=== PATIENT | male | born 1960 | race Caucasian/White ===

== ENCOUNTER 2022-07-29 13:23 | Inpatient (IN) | payer MEDICARE, MEDICAID ==
[~2022-07-29] VITALS: Ht 188 cm; Wt 91.2 kg
--- NOTE | 2022-07-29 13:23 | NUR ---
RECIVED PT C[facility] AND HR HAD WOUND WITH YELLOW DRNING ON RT LER
[2022-07-29] MEDS ORDERED: IV NS 0.9% 1,000 ML IV ONE ×2 (14:00→14:30)
[2022-07-29 14:21] LABS: BASOPHILS % (AUTO) 0.2 % (0.0-2.0); EOSINOPHILS % (AUTO) 0.1 % (0.0-6.0); HEMATOCRIT 36 % (39-51); HEMOGLOBIN 11.1 g/dL (13.5-17.5); LYMPHOCYTES # (AUTO) 0.4 K/uL (0.8-4.8); LYMPHOCYTES % (AUTO) 3.3 % (20.0-44.0); MEAN CORPUSCULAR HGB CONC 31 g/dl (31.0-36.0); MEAN CORPUSCULAR VOLUME 81 fL (80-96); MONOCYTES # (AUTO) 0.7 K/uL (0.1-1.30); MONOCYTES % (AUTO) 6.4 % (2.0-12.0); NEUTROPHILS # (AUTO) 9.8 K/uL (1.8-8.9); PLATELET COUNT (AUTO) 445 K/uL (150-450); RED BLOOD CELL COUNT(AUTO) 4.38 MIL/uL (4.5-6.0); WHITE BLOOD COUNT (AUTO) 10.9 K/uL (4.3-11.0)
--- NOTE | 2022-07-29 14:24 | NUR ---
MOVE SHEET SUBMITTED.
[2022-07-29] MEDS ORDERED: KETOROLAC TROMETHAMINE INJ 30 MG/ML VIAL IV ONE (14:30)
[2022-07-29] MEDS ORDERED: VANCOMYCIN 1 GM in IV D5W 250 ML IV ONE (14:30)
[2022-07-29 14:36] LABS: CALCIUM, SERUM 8.3 mg/dL (8.5-10.1); CARBON DIOXIDE 25 mmol/L (21-32); CHLORIDE 99 mmol/L (98-107); CREATININE 1.3 mg/dL (0.6-1.3); GLUCOSE 179 mg/dL (74-106); SODIUM SERUM 130 mmol/L (136-145); UREA NITROGEN, BLOOD 18 mg/dL (7-18)
--- NOTE | 2022-07-29 14:40 | NUR ---
[facility] CALLED PAINTER AIRCRAFT PAGED.
[2022-07-29] MEDS ORDERED: METF-881 PO (14:41)
[2022-07-29] MEDS ORDERED: HYDR25TA4 PO (14:41)
[2022-07-29] MEDS ORDERED: TERB250T52 PO (14:41)
[2022-07-29] MEDS ORDERED: CLOP75TA15 PO (14:41)
[2022-07-29] MEDS ORDERED: ASPI-1420 PO (14:41)
[2022-07-29] MEDS ORDERED: ATOR40TA PO (14:41)
[2022-07-29 14:42] LABS: ALANINE AMINOTRANSFERASE 53 U/L (12-78); ALKALINE PHOSPHATASE 82 U/L (46-116); ASPARTATE AMINOTRANSFERASE 38 U/L (15-37); BILIRUBIN,DIRECT 0.1 mg/dL (0.0-0.2); BILIRUBIN,TOTAL 0.3 mg/dL (0.2-1.0); TOTAL PROTEIN, SERUM 7.6 g/dL (6.4-8.2)
--- NOTE | 2022-07-29 15:00 | NUR ---
UA SENT TO LAB
--- NOTE | 2022-07-29 15:45 | NUR ---
DR. BRICEÑO WOUND HERE AT BED SIDE WOUND CULURE DONE AND SENT TO LAB IN BOTH LOWER EXTRAMITY
--- NOTE | 2022-07-29 16:08 | NUR ---
COVID SWAB SENT TO LAB
--- NOTE | 2022-07-29 17:00 | NUR ---
DRESSING APPLEED IN BOTH LOWER EXTRAMITY
[2022-07-29] MEDS ORDERED: LORAZEPAM INJ 2 MG/ML VIAL IV ONE (17:30)
[2022-07-29] MEDS ORDERED: ACETAMINOPHEN ES 500 MG TABLET PO ONE (17:30)
[2022-07-29] MEDS ORDERED: ACETAMINOPHEN ES 500 MG TABLET ONE (17:43)
[2022-07-29] MEDS ORDERED: LORAZEPAM INJ 2 MG/ML VIAL ONE (17:43)
--- NOTE | 2022-07-29 18:00 | NUR ---
TEMP 100.5 TYLENOL 1 GM PO GIVEN
--- NOTE | 2022-07-29 19:45 | NUR ---
HAND OFF LARISA LEZAMA
[2022-07-29] MEDS ORDERED: MAGNESIUM HYDROXIDE 30 ML UDC PO PRN (20:30)
[2022-07-29] MEDS ORDERED: DEXTROSE 50%-WATER 50 ML DISP.SYRIN IV PRN (20:30)
[2022-07-29] MEDS ORDERED: ONDANSETRON HCL/PF 4 MG/2 ML VIAL IVP PRN (20:30)
[2022-07-29] MEDS ORDERED: Z GUARD REMEDY 4 OZ OINT TP PRN (20:30)
[2022-07-29] MEDS ORDERED: MAG HYDROX/AL HYDROX/SIMETH 30 ML UDC PO PRN (20:30)
--- NOTE | 2022-07-29 20:36 | NUR ---
REPORT GIVEN TO January RN FOR GLENN
[2022-07-29 21:20] VITALS: BP 115/60
--- NOTE | 2022-07-29 21:28 | NUR ---
PT TRANSFERRED TO 3W-2 VIA ACLS PROTOCOL. ALL BELONGINGS WITH PT
[2022-07-29 21:40] VITALS: BP 115/60
--- NOTE | 2022-07-29 21:40 | NUR ---
EIGHT SECTION BLOWERBABY STROLLER RENTAL CLERK NOTES RECEIVED PATIENT FROM ED [facility]IA [facility] AT 2120 UNDER THE CARE OF STANFORD RAMOS NP WITH ADMITTING DX OF BILATERAL LOWER EXTREMITY CELLULITIS AND POSSIBLE EARLY SEPSIS. PATIENT IS A/O X3, ANXIOUS. BREATHING EVEN AND NON-LABORED, ON O2 AT 2LPM VIA NASAL CANULA. PRODUCTIVE COUGH NOTED. C/O BILATERAL LOWER EXTREMITY PAIN 10/10. PATIENT ALSO VERBALIZED HE HAS NON-RADIATING CHEST PAIN WHEN COUGHING. HAS LEFT FOREARM IV ACCESS #20G AND SALINE LOCKED. NO S/S OF INFILTRATION NOTED. V/S TAKEN. PHYSICAL ASSESSMENT DONE. WOUND CARE RENDERED. ALL BELONGINGS ACCOUNTED FOR. ORIENTED PATIENT TO UNIT AND STAFF. SAFETY PRECAUTIONS IN PLACE: BED LOCKED AND IN LOWEST POSITION, SIDE RAILS UP X2, CALL LIGHT WITHIN REACH. WILL CONTINUE POC.
[2022-07-29] MEDS ORDERED: TEMAZEPAM 15 MG CAPSULE PO PRN (22:00)
--- NOTE | 2022-07-29 22:00 | NUR ---
TELEVISION WRITER NOTES PATIENT'S MEDICATIONS PLACED IN BAG AND INVENTORIED. WILL SURRENDER TO PHARMACY IN THE MORNING.
[2022-07-29] MEDS: ATORVASTATIN 40 MG TABLET PO SCH (22:03)
[2022-07-29] MEDS: IV NS 0.9% 1,000 ML IV PRN (22:03)
[2022-07-29] MEDS: MORPHINE SULFATE INJ 2 MG/ML DISP.SYRIN IV PRN (22:07)
--- NOTE | 2022-07-29 22:10 | NUR ---
CONTEMPORARY OR MODERN DANCER NOTES PATIENT C/O BLE PAIN. HE IS VERY ANXIOUS. ADMINISTERED PRN MORPHINE 2MG, TOLERATED WELL.
[2022-07-29] MEDS: INSULIN REGULAR, HUMAN 100 UNIT/ML 3 ML VIAL SQ PRN (22:20)
[2022-07-29] MEDS: BLOOD SUGAR DIAGNOSTIC 1 EACH STRIP IN SCH (22:20)
[2022-07-29] MEDS: ACETAMINOPHEN 325 MG TABLET PO PRN (23:59)
[2022-07-30] VITALS (9 sets, daily range): BP systolic 116–136; BP diastolic 64–80
--- NOTE | 2022-07-30 01:25 | NUR ---
WOODS SUPERINTENDENT NOTES PATIENT STILL NOTED WITH FEVER. ICE PACK PROVIDED.
[2022-07-30] MEDS: VANCOMYCIN HCL 0.75 GM in IV D5W 250 ML IV SCH ×2 (02:32→15:21)
[2022-07-30] MEDS: MORPHINE SULFATE INJ 2 MG/ML DISP.SYRIN IV PRN ×4 (03:20→21:50)
--- NOTE | 2022-07-30 03:20 | NUR ---
RESOURCE MANAGER NOTES PATIENT WOKE UP AND C/O BLE PAIN 03/25. ADMINISTERED PRN MORPHINE 2MG, WILL CONTINUE PAIN MGT.
[2022-07-30] MEDS: ALBUTEROL FS 2.5 MG/3 ML VIAL.NEB NEB PRN ×3 (03:32→20:43)
[2022-07-30] MEDS: IPRATROPIUM NEB FS 0.5 MG/2.5 ML AMPUL.NEB NEB PRN ×3 (03:32→20:43)
--- NOTE | 2022-07-30 04:00 | NUR ---
OCCUPATIONAL SAFETY AND HEALTH MANAGER NOTES NOTIFIED HOSPITALIST DMITRIY HAMILTON THAT PATIENT IS C/O DIFFICULTY EXCRETING SECRETIONS. RT RECOMMENDED MUCOMYST. STILL AWAITING FOR ORDER. Addendum: 07/30/22 at 0710 by January ROLDAN LEZAMA NO ANSWER FROM RT FOR MUCOMYST RECOMMENDATION. ENDORSING TO AM NURSE FOR CLARIFICATION.
[2022-07-30] MEDS: INSULIN REGULAR, HUMAN 100 UNIT/ML 3 ML VIAL SQ PRN ×4 (06:41→22:06)
[2022-07-30] MEDS: BLOOD SUGAR DIAGNOSTIC 1 EACH STRIP IN SCH ×4 (06:41→22:05)
--- NOTE | 2022-07-30 07:11 | NUR ---
PROFESSOR OF BIOLOGY CLOSING NOTES PATIENT IN BED ASLEEP, EASY TO AROUSE. ABLE TO VERBALIZE NEEDS. STABLE THROUGHOUT THE NIGHT. SATURATING AROUND 96-98% ON O2 AT 2LPM VIA NASAL CANULA. FEBRILE. OBTAINED MUCOMYST ORDER FROM HOSPITALIST, AWAITING FOR CLARIFICATION FROM RT. ON TELE MONITOR READING SINUS TACHYCARDIA AT 114 BPM. LEFT FOREARM IV ACCESS #20G INTACT, PATENT AND FLUSHING. ALL DUE MEDS GIVEN AND NEEDS ATTENDED. SAFETY PRECAUTIONS MAINTAINED. WILL ENDORSE TO NEXT SHIFT FOR GLENN.
[2022-07-30 07:18] LABS: CALCIUM, SERUM 8.1 mg/dL (8.5-10.1); CREATININE 1.2 mg/dL (0.6-1.3); PHOSPHORUS 2.3 mg/dL (2.5-4.9)
--- NOTE | 2022-07-30 07:23 | NUR ---
INTERACTIVE GRAPHIC DESIGNER OPENING NOTES RECEIVED PATIENT ASLEEP IN BED, EASILY AWAKENS. PT IS A/O X 3, ABLE TO MAKE NEEDS KNOWN, NO C/O PAIN OR ANY DISCOMFORTS VOICED AT THIS TIME. ON SUPPLEMENTAL 02 @ 2LPM, TOLERATING WELL, BREATHING EVEN AND UNLABORED, NO ACUTE DISTRESS NOTED. ON TELE-MONITOR WITH CURRENT READING OF ST, HR 120, NO C/O CARDIAC DISTRESS VOICED AT THIS TIME. IV ACCESS ON LFA G@ 20 INTACT WITH IVF OF NS @ 75 ML/HR INFUSING WELL, NO S/S OF INFILTRATION NOTED. SAFETY PRECAUTIONS IN PLACE: BED IN LOWEST LOCKED POSITION WITH SR UP X2, CALL LIGHT W/IN REACH. WILL CONTINUE TO MONITOR PT ACCORDINGLY.
[2022-07-30 07:24] LABS: THYROID STIMULATING HORMONE 0.497 uIU/mL (0.358-3.74)
[2022-07-30 07:38] LABS: BASOPHILS % (AUTO) 0.1 % (0.0-2.0); HEMATOCRIT 32 % (39-51); HEMOGLOBIN 10.1 g/dL (13.5-17.5); LYMPHOCYTES % (AUTO) 7.8 % (20.0-44.0); MEAN CORPUSCULAR HGB CONC 32 g/dl (31.0-36.0); MEAN CORPUSCULAR VOLUME 80 fL (80-96); MONOCYTES % (AUTO) 7.9 % (2.0-12.0); NEUTROPHILS # (AUTO) 10.8 K/uL (1.8-8.9); NEUTROPHILS % (AUTO) 84.2 % (43.0-81.0); PLATELET COUNT (AUTO) 389 K/uL (150-450); RED BLOOD CELL COUNT(AUTO) 3.94 MIL/uL (4.5-6.0); WHITE BLOOD COUNT (AUTO) 12.8 K/uL (4.3-11.0)
[2022-07-30] MEDS: PANTOPRAZOLE 40 MG TABLET.DR PO SCH (08:08)
[2022-07-30] MEDS: CLOPIDOGREL BISULFATE 75 MG TABLET PO SCH (08:17)
[2022-07-30] MEDS: ASPIRIN EC 81 MG TABLET.DR PO SCH (08:17)
[2022-07-30] MEDS: TERBINAFINE HCL 250 MG TABLET PO SCH (08:18)
--- NOTE | 2022-07-30 08:37 | NUR ---
WOUND CARE CONSULT: PT PRESENTS WITH LOWER LEG WOUNDS, PRESENT ON ADMISSION. DRESSINGS ARE IN PLACE. PT EATING AT THIS TIME. PT STATES IS FOLLOWED BY DR KIKA IBRAHIM DPM. DEFER TO PODIATRY FOR WOUND TREATMENT PLAN. WILL SEE PRN.
[2022-07-30] MEDS: ACETAMINOPHEN 325 MG TABLET PO PRN ×2 (08:56→20:01)
--- NOTE | 2022-07-30 09:00 | NUR ---
RN NOTES PT NOTED WITH ELEVATED TEMP OF 102.8f, PRN TYLENOL 650MG PO GIVEN AND COOLING MEASURES IMPLEMENTED. WILL CONTINUE TO MONITOR PT.
--- NOTE | 2022-07-30 10:00 | NUR ---
building maintenance worker received a consult request for possible homelessness. building maintenance worker will follow up.
[2022-07-30] MEDS ORDERED: K PHOS NEUTRAL 250 MG TABLET PO ONE (11:00)
--- NOTE | 2022-07-30 11:11 | NUR ---
Crystal Inspector Consult Project Account Manager received a consult request for possible homelessness. Pt. is a 62 year old male who was admitted for cellulitis. rattan worker me with pt at bedside. rattan worker attempted to conduct interview but pt did not wish to speak. Pt. was alert and oriented x3, he was sleepy and had a congruent mood. Pt. did not wish to provide demographic information. Pt stated he just wanted to seek medical tx and inquired regarding a group home facility or an CHANDA. Pt was fixated that he had a fever. SW offered pt. homelessness resources in which pt denied. Pt stated he was not homeless and did not want to talk about it. SW atemtped to continue interview but pt did not provide more information. SW discussed with nurse Florencio that pt stated he was not homeless, that SW could not complete interview, and that pt did not want to sign homeless waiver form in which nurse was agreeable. SW left homelessness resources on pt.'s bedside table with her contact information for pt. ------- Year-round shelters: [facility] [address] [place], [place] [phone] ; [facility] [place] [address] [place] [address]; [facility] Jepcwew2012 [facility]. [facility] [address] Hygiene: [facility]: [address] [place] ; [facility] [address] [facility] ; [facility] [address] [facility] . Food Resources: [place] [facility] at [facility]- [address] [place]; Meet Each Need with Dignity ([facility]) [address] [place]; [facility] [address] [facility]; [facility] [address] [facility]. Mental Health resources provided: [facility] [address] [place] [address] ; [facility] [address] [facility] [address], [place] [address] ; [facility] [address] [place] [address] ; [facility] [place], [place] [address] Healthcare Clinics: [facility] [address] [facility], [address] [place]. [place] ; [facility] [address] [facility] [address] [place] [address]; [facility] [address] [facility] [phone] Counseling--Outpatient [facility] [address] [facility], [place] [address] (Specializes in in-depth psychotherapy for emotional distress: anxiety, depression, interpersonal conflicts, life transitions, childhood abuse) [facility] [address] [place] [address] (Assist with solving problem marital difficulties, separation & divorce, aging parents, & grief, chronic & terminal illness) [facility] [address] [place] [address] (Deal with loss & grief, anxiety, marital difficulties) Homebound/Mental Health Services [address] [facility], [address] [place] [address] (Provide in-home mental services to people who are incapable of leaving their homes) [facility] Elder[facility] [address] [place] [address] [facility] [address] [place] [address] PSYCHIATRIC OUTPATIENT SERVICES [facility] Partial Hospitalization and Intensive Outpatient Program (Managed Care and [place] Only)[address]. [facility] [phone] [facility] Partial Hospitalization and Outpatient [id number] [facility]. [address] [place], [place] [phone] [facility] Ayt[address] [facility]. [address] [place], [place] [phone] [facility] Abdulkadir Partial Hospitalization and Outpatient [id number] EMILIE [phone] Substance Abuse resources provided included: [facility] Substance Abuse Self-Helpline ([facility]) ; [facility] [address] [facility] [place] [phone] ; [facility] [address] [facility] [address] ; [facility] [address] [facility] [phone] ; [facility] [address] [facility] [address] ; [facility] [address] [facility] [phone] ; [facility] [address] [facility] [phone] ; [facility] Substance Abuse Helpline([facility] ; [facility] ; [facility] [place]; [facility] [place]; [facility] [place]; [facility]; [facility] [place]; [facility] [place]; [facility]; [facility] [place]; Alcoholics Anonymous -[facility]; Rr-Wnkn-Csyetpp ; Marijuana Anonymous [facility]; Narcotics Anonymous www.na.org;
--- NOTE | 2022-07-30 11:36 | NUR ---
RN NOTES PT C/O SHARP BURNING PAIN ON BLE EXTREMITIES, 10/10 SCALE. PRN MORPHINE 2MG/ML IVP ADMINISTERED AT 1130. WILL CONTINUE TO MONITOR AND REASSESS PT.
[2022-07-30] MEDS ORDERED: PIPERACILLIN /TAZOBACTAM 3.375 G in IV D5W 50 ML IV ONE (12:00)
[2022-07-30 12:43] LABS: BAND % (MANUAL) 21 % (0.0-5.0); BASOPHILS % (MANUAL) 0 % (0.0-2.0); EOSINOPHILS % (MANUAL) 0 % (0-4); LYMPHOCYTES % (MANUAL) 7 % (16-48); MONOCYTES % (MANUAL) 7 % (0-11.0); NEUTROPHILS % (MANUAL) 65 (42-76)
[2022-07-30] MEDS: HYDROCODONE/APAP 5/325MG TABLET PO PRN ×2 (14:24→23:40)
--- NOTE | 2022-07-30 14:29 | NUR ---
RN NOTES PT C/O SHARP BURNING PAIN ON RIGHT LOWER LEG WOUND AFTER DRESSING CHANGED, 7/10 SCALE. PRN NORCO 5/325 MG PO GIVEN AT 1424. WILL CONTINUE TO MONITOR AND REASSESS PT.
[2022-07-30] MEDS: IV NS 0.9% 1,000 ML IV PRN (15:45)
--- NOTE | 2022-07-30 15:51 | NUR ---
RN NOTES PT C/O SHARP BURNING PAIN ON RIGHT LOWER EXTREMITY, 8/10 SCALE. PRN MORPHINE 2MG/ML IVP ADMINISTERED AT 1545. WILL CONTINUE TO MONITOR AND REASSESS PT.
[2022-07-30 17:00] LABS: BILIRUBIN,URINE NEGATIVE (NEGATIVE); COLOR,URINE YELLOW (YELLOW); LEUKOCYTE ESTERASE ,URINE NEGATIVE (NEGATIVE); NITRITE, URINE NEGATIVE (NEGATIVE); PROTEIN,URINE 1+ mg/dl (NEGATIVE); UGLUCOSE NEGATIVE (NEGATIVE)
[2022-07-30 17:44] LABS: BACTERIA,URINE None seen /HPF (None Seen); SQUAMOUS EPITHELIAL CELL,UR 0-2 /HPF (None Seen); WBC,URINE 0-2 /HPF (0-3)
--- NOTE | 2022-07-30 18:34 | NUR ---
YIELD CLERK CLOSING NOTES PATIENT IN BED WATCHING TV AT THIS TIME. A/O X 3, ABLE TO MAKE NEEDS KNOWN. ON SUPPLEMENTAL 02 @ 2LPM VIA N/C, TOLERATING WELL, BREATHING EVEN AND UNLABORED, NO ACUTE DISTRESS NOTED DURING SHIFT. ON TELE-MONITOR WITH CURRENT READING OF ST, HR 118, NO C/O CARDIAC DISTRESS VOICED. IV ACCESS ON LFA G#20 INTACT WITH IVF OF NS @ 75 ML/HR INFUSING WELL, NO S/S OF INFILTRATION NOTED. ALL NEEDS AND CARE PROVIDED WELL. SAFETY PRECAUTIONS IN PLACE: BED IN LOWEST LOCKED POSITION WITH SR UP X2, CALL LIGHT W/IN REACH.WILL ENDORSED LGENN TO DENTAL PRACTICE MANAGER NURSE
--- NOTE | 2022-07-30 19:31 | NUR ---
DEVELOPER RELATIONS MANAGER OPENING NOTES RECEIVED PATIENT LAYING IN BED AWAKE. A/O X3. BREATHING EVEN AND NON-LABORED ON ROOM AIR. NOT IN APPARENT DISTRESS. NO C/O PAIN OR DISCOMFORT. ON TELE MONITOR READING SINUS TACHYCARDIA AT 119 BPM. HAS LEFT FOREARM IV ACCESS #20G WITH NS RUNNING AT 75 ML/HR. NO S/S OF INFILTRATION NOTED. BILATERAL LOWER EXTREMITY DRESSING C/D/I. SAFETY PRECAUTIONS IN PLACE: BED LOCKED AND IN LOWEST POSITION, SIDE RAILS UP X2, CALL LIGHT WITHIN REACH. WILL CONTINUE POC.
[2022-07-30] MEDS: PIPERACILLIN /TAZOBACTAM 3.375 G in IV D5W 100 ML IV SCH (20:01)
--- NOTE | 2022-07-30 20:01 | NUR ---
HVAC SALES ENGINEER NOTES PATIENT NOTED WITH 103 TEMP. WILL GIVE PRN TYLENOL AND CONTINUE TO MONITOR.
[2022-07-30] MEDS ORDERED: MUPIROCIN OINT 2% 22 GM TUBE TP SCH (21:30)
[2022-07-30] MEDS: ATORVASTATIN 40 MG TABLET PO SCH (21:50)
--- NOTE | 2022-07-30 22:00 | NUR ---
TRANSCRIPTION SPECIALIST NOTES PATIENT C/O BURNING BLE PAIN, 05/25. ADMINISTERED PRN MORPHINE 2MG, TOLERATED WELL.
[2022-07-30] MEDS ORDERED: MUPIROCIN OINT 2% 22 GM TUBE ONE (23:21)
--- NOTE | 2022-07-30 23:36 | NUR ---
LABORATORY EQUIPMENT CLEANER NOTES NOTIFIED DMITRIY HAMILTON NP FOR C/O DRYNESS AND DIFFICULTY EXCRETING SECRETIONS. ORDERED MUCOMYST 10% 250MG NEB Q8. NOTED AND CARRIED OUT.
[2022-07-30] MEDS: MUPIROCIN OINT 2% 22 GM TUBE TP SCH (23:57)
[2022-07-31] VITALS (8 sets, daily range): BP systolic 117–156; BP diastolic 62–112
[2022-07-31] MEDS: IPRATROPIUM NEB FS 0.5 MG/2.5 ML AMPUL.NEB NEB PRN (00:22)
[2022-07-31] MEDS: ACETYLCYSTEINE 10% SOLN 400 MG/4 ML VIAL NEB SCH ×4 (00:22→23:01)
[2022-07-31] MEDS: VANCOMYCIN HCL 0.75 GM in IV D5W 250 ML IV SCH (03:18)
[2022-07-31] MEDS: PIPERACILLIN /TAZOBACTAM 3.375 G in IV D5W 100 ML IV SCH ×3 (04:20→20:10)
[2022-07-31] MEDS: MORPHINE SULFATE INJ 2 MG/ML DISP.SYRIN IV PRN (04:37)
[2022-07-31] MEDS: ACETAMINOPHEN 325 MG TABLET PO PRN ×2 (04:40→16:01)
--- NOTE | 2022-07-31 04:40 | NUR ---
WEIGHER ALLOY NOTES PATIENT C/O BLE PAIN 03/25. ADMINISTERED PRN MORPHINE 2MG. PATIENT IS ASKING FOR MORE FREQUENCY AND STRONGER PAIN MED.
[2022-07-31 06:24] LABS: BASOPHILS % (AUTO) 0.1 % (0.0-2.0); EOSINOPHILS % (AUTO) 0.2 % (0.0-6.0); HEMATOCRIT 29 % (39-51); HEMOGLOBIN 9.5 g/dL (13.5-17.5); LYMPHOCYTES # (AUTO) 0.9 K/uL (0.8-4.8); LYMPHOCYTES % (AUTO) 6.9 % (20.0-44.0); MEAN CORPUSCULAR HGB CONC 32 g/dl (31.0-36.0); MEAN CORPUSCULAR VOLUME 79 fL (80-96); MONOCYTES # (AUTO) 0.8 K/uL (0.1-1.30); MONOCYTES % (AUTO) 6.1 % (2.0-12.0); NEUTROPHILS # (AUTO) 11.3 K/uL (1.8-8.9); NEUTROPHILS % (AUTO) 86.7 % (43.0-81.0); PLATELET COUNT (AUTO) 355 K/uL (150-450); RED BLOOD CELL COUNT(AUTO) 3.71 MIL/uL (4.5-6.0)
[2022-07-31] MEDS: BLOOD SUGAR DIAGNOSTIC 1 EACH STRIP IN SCH ×4 (06:46→21:17)
[2022-07-31 06:47] LABS: CALCIUM, SERUM 8.3 mg/dL (8.5-10.1); CREATININE 1.1 mg/dL (0.6-1.3); MAGNESIUM 2.1 mg/dL (1.8-2.4); PHOSPHORUS 2.1 mg/dL (2.5-4.9); POTASSIUM 3.9 mmol/L (3.5-5.1)
[2022-07-31] MEDS: INSULIN REGULAR, HUMAN 100 UNIT/ML 3 ML VIAL SQ PRN ×3 (06:47→17:02)
--- NOTE | 2022-07-31 06:56 | NUR ---
UNDER WATER ASSISTANT CLOSING NOTES PATIENT IN BED AWAKE. ABLE TO VERBALIZE NEEDS. ANXIOUS AND KEPT ASKING FOR NEW MEDS. C/O DIFFICULTY AND PAIN WHEN COUGHING, EDUCATED THAT HE IS ALREADY GETTING BREATHING TX TO HELP WITH THAT. HOWEVER, PATIENT IS NOT RECEPTIVE TO INFORMATION AND GETS AGITATED. STILL ON O2 AT 2LPM VIA NASAL CANULA. MILD FEVER NOTED. ON TELE MONITOR READING SINUS TACHYCARDIA AT 102 BPM. LEFT FOREARM IV ACCESS #20G INTACT, PATENT AND FLUSHING. WOUND CARE RENDERED. RIGHT LEG WOUND DRESSING C/D/I. ALL DUE MEDS GIVEN AND NEEDS ATTENDED. SAFETY PRECAUTIONS MAINTAINED. WILL ENDORSE TO NEXT SHIFT FOR GLENN.
--- NOTE | 2022-07-31 07:25 | NUR ---
GRAY TENDER OPENING NOTES RECEIVED PATIENT IN BED AWAKE, A/O X 3. ABLE TO MAKE NEEDS KNOWN, NO C/O PAIN OR ANY DISCOMFORTS VOICED AT THIS TIME. ON SUPPLEMENTAL 02 @ 2LPM VIA N/C, TOLERATING WELL, BREATHING EVEN AND UNLABORED, NO ACUTE DISTRESS NOTED. ON TELE-MONITOR WITH CURRENT READING OF ST, HR 101, NO C/O CARDIAC DISTRESS VOICED AT THIS TIME. IV ACCESS ON LFA G@ 20 INTACT WITH IVF OF NS @ 75 ML/HR INFUSING WELL, NO S/S OF INFILTRATION NOTED. SAFETY PRECAUTIONS IN PLACE: BED IN LOWEST LOCKED POSITION WITH SR UP X2, TRAY TABLE AND CALL LIGHT W/IN REACH OF PT. WILL CONTINUE TO MONITOR PT
[2022-07-31] MEDS: CLOPIDOGREL BISULFATE 75 MG TABLET PO SCH (08:30)
[2022-07-31] MEDS: PANTOPRAZOLE 40 MG TABLET.DR PO SCH (08:30)
[2022-07-31] MEDS: ASPIRIN EC 81 MG TABLET.DR PO SCH (08:30)
[2022-07-31] MEDS: TERBINAFINE HCL 250 MG TABLET PO SCH (08:32)
[2022-07-31] MEDS: HYDROCODONE/APAP 5/325MG TABLET PO PRN ×2 (09:37→18:38)
--- NOTE | 2022-07-31 09:41 | NUR ---
RN NOTES PT C/O SHARP BURNING PAIN ON BLE, 7/10 SCALE. PRN NORCO 5/325 MG PO GIVEN AT 0937. WILL CONTINUE TO MONITOR AND REASSESS PT.
[2022-07-31] MEDS: MUPIROCIN OINT 2% 22 GM TUBE TP SCH (10:43)
[2022-07-31] MEDS ORDERED: K PHOS NEUTRAL 250 MG TABLET PO ONE (11:00)
[2022-07-31] MEDS: VANCOMYCIN 1 GM in IV D5W 250ml IV SCH (15:13)
--- NOTE | 2022-07-31 16:03 | NUR ---
RN NOTES PT NOTED WITH ELEVATED TEMP OF 100.5F, PRN TYLENOL 650MG PO GIVEN AT 1601 AND COOLING MEASURES IMPLEMENTED. WILL CONTINUE TO MONITOR PT.
[2022-07-31] MEDS: PHENOL/SODIUM PHENOLATE 1 BOTTLE MM PRN ×2 (17:04→23:22)
[2022-07-31] MEDS: BENZONATATE 100 MG CAPSULE PO PRN (17:56)
--- NOTE | 2022-07-31 18:43 | NUR ---
LABEL CUTTER CLOSING NOTES PATIENT RESTING IN BED WATCHING TV AT THIS TIME. A/O X 3, ABLE TO MAKE NEEDS KNOWN WITH C/O SHARP BURNING SENSATION PAIN ON BLE, MOSTLY ON THE RIGHT, 7/10 SCALE. PRN NORCO 5/325MG TAB GIVEN AT 1838. ON SUPPLEMENTAL 02 @ 2LPM VIA N/C, TOLERATING WELL, BREATHING EVEN AND UNLABORED, NO ACUTE DISTRESS RESPIRATORY DISTRESS NOTED DURING SHIFT. ON TELE-MONITOR WITH CURRENT READING OF ST, HR 109, NO C/O CARDIAC DISTRESS VOICED. IV ACCESS ON LFA G#20 INTACT WITH IVF OF NS @ 75 ML/HR INFUSING WELL, NO S/S OF INFILTRATION NOTED. ALL NEEDS AND CARE ATTENDED WELL. SAFETY PRECAUTIONS IN PLACE: BED IN LOWEST LOCKED POSITION WITH SR UP X2, CALL LIGHT W/IN REACH.WILL ENDORSED GLENN TO MANAGER TRANSMISSION NURSE.
--- NOTE | 2022-07-31 19:30 | NUR ---
KAI WHAKARURUHAU OPENING NOTES RECEIVED PATIENT AWAKE IN BED.PATIENT IS A/O X3. BREATHING EVEN AND NON-LABORED ON ROOM AIR. NOT IN APPARENT DISTRESS. NO C/O PAIN OR DISCOMFORT. ON TELE MONITOR READING SINUS TACHYCARDIA AT 109 BPM.LEFT FOREARM IV ACCESS #20G WITH NS RUNNING AT 75 ML/HR. NO S/S OF INFILTRATION NOTED. BILATERAL LOWER EXTREMITY DRESSING INTACT AND PATENT. ALL SAFETY PRECAUTIONS IN PLACE: BED LOCKED AND IN LOWEST POSITION, SIDE RAILS UP X2, CALL LIGHT WITHIN REACH. WILL CONTINUE MONITOR CLOSELY.
[2022-07-31] MEDS: ATORVASTATIN 40 MG TABLET PO SCH (21:05)
--- NOTE | 2022-07-31 21:29 | NUR ---
RN NOTES BLOOD SUGAR CHECKED, NOTED 136. PATIENT REFUSED INSULIN. OFFERED AND EXPLAINED THE USE OF THE MEDICATION, STILL REUSING. RESPECT PATIENT'S RIGHTS.
[2022-08-01 00:05] VITALS: BP 144/85
[2022-08-01] MEDS: MUPIROCIN OINT 2% 22 GM TUBE TP SCH ×3 (00:10→22:21)
[2022-08-01] MEDS: MORPHINE SULFATE INJ 2 MG/ML DISP.SYRIN IV PRN ×2 (01:18→09:02)
[2022-08-01] MEDS: VANCOMYCIN 1 GM in IV D5W 250ml IV SCH ×2 (02:49→15:58)
[2022-08-01] MEDS: IV NS 0.9% 1,000 ML IV PRN (03:59)
[2022-08-01] MEDS: HYDROCODONE/APAP 5/325MG TABLET PO PRN (04:03)
[2022-08-01 04:15] VITALS: BP 133/83
[2022-08-01] MEDS: PIPERACILLIN /TAZOBACTAM 3.375 G in IV D5W 100 ML IV SCH ×3 (04:45→20:21)
[2022-08-01] MEDS: BLOOD SUGAR DIAGNOSTIC 1 EACH STRIP IN SCH ×4 (06:32→22:12)
--- NOTE | 2022-08-01 06:34 | NUR ---
RN NOTES BLOOD SUGAR CHECKED NOTED 121. NO INSULIN COVERAGE.
[2022-08-01 06:51] LABS: BASOPHILS % (AUTO) 0.1 % (0.0-2.0); EOSINOPHILS % (AUTO) 0.3 % (0.0-6.0); HEMATOCRIT 28 % (39-51); HEMOGLOBIN 9.3 g/dL (13.5-17.5); LYMPHOCYTES # (AUTO) 0.9 K/uL (0.8-4.8); LYMPHOCYTES % (AUTO) 6.9 % (20.0-44.0); MEAN CORPUSCULAR HGB CONC 33 g/dl (31.0-36.0); MEAN CORPUSCULAR VOLUME 78 fL (80-96); MONOCYTES # (AUTO) 0.9 K/uL (0.1-1.30); MONOCYTES % (AUTO) 6.7 % (2.0-12.0); NEUTROPHILS # (AUTO) 11.9 K/uL (1.8-8.9); PLATELET COUNT (AUTO) 353 K/uL (150-450); RED BLOOD CELL COUNT(AUTO) 3.61 MIL/uL (4.5-6.0); WHITE BLOOD COUNT (AUTO) 13.8 K/uL (4.3-11.0)
--- NOTE | 2022-08-01 06:51 | NUR ---
BED SPRING MAKER CLOSING NOTES PATIENT AWAKE IN BED.PATIENT IS A/O X3. BREATHING EVEN AND NON-LABORED . ON O2 INHALATION VIA NASAL CANNULA AT 2L/MIN. NOT IN APPARENT DISTRESS. NO C/O PAIN OR DISCOMFORT. ON TELE MONITOR READING SINUS RHYTHM AT 94 BPM.LEFT FOREARM IV ACCESS #20G WITH NS RUNNING AT 75 ML/HR. NO S/S OF INFILTRATION NOTED. ALL DUE MEDS GIVEN ORDERED. DRESSING CHANGED. BILATERAL LOWER EXTREMITY DRESSING INTACT AND PATENT. AFEBRILE DURING SHIFT. ALL SAFETY PRECAUTIONS IN PLACE: BED LOCKED AND IN LOWEST POSITION, SIDE RAILS UP X2, CALL LIGHT IN REACH.WILL ENDORSE FOR GLENN.
[2022-08-01 07:13] LABS: MAGNESIUM 2.1 mg/dL (1.8-2.4); PHOSPHORUS 2.2 mg/dL (2.5-4.9); POTASSIUM 3.7 mmol/L (3.5-5.1)
--- NOTE | 2022-08-01 07:30 | NUR ---
BAKING FACTORY WORKER NOTES PT IN BED, AWAKE, ALERT AND ORIENTED, NO COMPLAINT AT THIS TIME, BREATHING PATTERN NORMAL, CALL LIGHT WITHIN REACH, DRESSING THE BLE INTACT, CLEAN AND DRY.
[2022-08-01 08:00] VITALS: BP 142/85
[2022-08-01] MEDS: ACETYLCYSTEINE 10% SOLN 400 MG/4 ML VIAL NEB SCH ×3 (08:02→23:53)
[2022-08-01] MEDS: IPRATROPIUM NEB FS 0.5 MG/2.5 ML AMPUL.NEB NEB PRN (08:02)
[2022-08-01] MEDS: ALBUTEROL FS 2.5 MG/3 ML VIAL.NEB NEB PRN (08:02)
[2022-08-01] MEDS: TERBINAFINE HCL 250 MG TABLET PO SCH (08:41)
[2022-08-01] MEDS: PANTOPRAZOLE 40 MG TABLET.DR PO SCH (08:42)
[2022-08-01] MEDS: ASPIRIN EC 81 MG TABLET.DR PO SCH (08:42)
[2022-08-01] MEDS: CLOPIDOGREL BISULFATE 75 MG TABLET PO SCH (08:42)
[2022-08-01] MEDS: INSULIN REGULAR, HUMAN 100 UNIT/ML 3 ML VIAL SQ PRN ×3 (11:43→22:16)
[2022-08-01 12:00] VITALS: BP 158/86
[2022-08-01] MEDS ORDERED: K PHOS NEUTRAL 250 MG TABLET PO ONE (12:30)
[2022-08-01 16:00] VITALS: BP 161/81
--- NOTE | 2022-08-01 19:00 | NUR ---
HUMAN ANATOMY TEACHER NOTES PT IN BED, RESTING, NO COMPLAINT OF PAIN OR ANY DISCOMFORT, RESPIRATIONS NORMAL, CALL LIGHT WITHIN REACH, IV FLUIDS INFUSING WELL, NEEDS ATTENDED, KEPT CLEAN, DRY AND COMFORTABLE.
[2022-08-01 20:00] VITALS: BP 135/84
--- NOTE | 2022-08-01 20:00 | NUR ---
RECEIVED PATIENT IN BED, ALERT/ORIENTED X3, STABLE ON 2LPM VIA NC, INTERMITTENT COUGH, SR ON THE TELE, BLE CELLULITIS, DRESSING DRY AND INTACT. VS STABLE, AFEBRILE, 97.9F. URINAL WITHIN REACH, KEPT SAFE, WILL CONTINUE TO MONITOR.
[2022-08-01] MEDS: ATORVASTATIN 40 MG TABLET PO SCH (21:46)
[2022-08-02] VITALS: BP 153/99
[2022-08-02 00:20] VITALS: BP 139/69
[2022-08-02] MEDS: VANCOMYCIN 1 GM in IV D5W 250ml IV SCH (02:55)
[2022-08-02] MEDS: PIPERACILLIN /TAZOBACTAM 3.375 G in IV D5W 100 ML IV SCH ×3 (03:51→20:48)
[2022-08-02] MEDS: IV NS 0.9% 1,000 ML IV PRN (03:51)
[2022-08-02] MEDS: ACETAMINOPHEN 325 MG TABLET PO PRN ×2 (04:05→20:55)
[2022-08-02 06:25] LABS: BASOPHILS % (AUTO) 0.2 % (0.0-2.0); EOSINOPHILS % (AUTO) 0.6 % (0.0-6.0); HEMATOCRIT 31 % (39-51); LYMPHOCYTES # (AUTO) 1.2 K/uL (0.8-4.8); LYMPHOCYTES % (AUTO) 7.6 % (20.0-44.0); MEAN CORPUSCULAR HGB CONC 32 g/dl (31.0-36.0); MEAN CORPUSCULAR VOLUME 78 fL (80-96); MONOCYTES # (AUTO) 1.7 K/uL (0.1-1.30); MONOCYTES % (AUTO) 11.1 % (2.0-12.0); NEUTROPHILS # (AUTO) 12.3 K/uL (1.8-8.9); NEUTROPHILS % (AUTO) 80.5 % (43.0-81.0); PLATELET COUNT (AUTO) 431 K/uL (150-450); RED BLOOD CELL COUNT(AUTO) 3.95 MIL/uL (4.5-6.0); WHITE BLOOD COUNT (AUTO) 15.3 K/uL (4.3-11.0)
--- NOTE | 2022-08-02 06:27 | NUR ---
ALERT/ORIENTED X3, 2LPM VIA NC, GENERALIZED WEAKNESS, BEDREST, BLE CELLULITIS, REFUSED WOUND CARE DURING SHIFT, NS AT 75 ML/HR, VOIDING VIA URINAL, CONTINUE VANCOMYCIN AND ZOSYN, ID WILL ORDER MRI TO RULE OUT OSTEOMYELITIS, WOUND CARE DAILY, XRAY OF TIBIA AND FIBULA.
[2022-08-02] MEDS: INSULIN REGULAR, HUMAN 100 UNIT/ML 3 ML VIAL SQ PRN ×3 (06:32→23:11)
[2022-08-02] MEDS: BLOOD SUGAR DIAGNOSTIC 1 EACH STRIP IN SCH ×4 (06:41→22:45)
[2022-08-02 06:47] LABS: CALCIUM, SERUM 8.6 mg/dL (8.5-10.1); CREATININE 1.1 mg/dL (0.6-1.3); MAGNESIUM 2.2 mg/dL (1.8-2.4); PHOSPHORUS 3.2 mg/dL (2.5-4.9); POTASSIUM 3.7 mmol/L (3.5-5.1)
[2022-08-02] MEDS: ACETYLCYSTEINE 10% SOLN 400 MG/4 ML VIAL NEB SCH ×4 (07:35→23:39)
--- NOTE | 2022-08-02 07:55 | NUR ---
RN OPENING NOTE PATIENT AWAKE IN BED RESTING AT THE MOMENT A/O X 4. NO S/S OF PAIN NOTED AT THIS TIME. ON 2L OXYGEN VIA NC, NO DISTRESS OR SHORTNESS OF BREATH NOTED. IV ACCESS LFA #20G, INTACT, PATENT AND FLUSHING WELL. PATIENT WITH EXTERNAL MANAGER DIALYSIS WITH CURRENT READING OF SR AND HR OF 89, NO CARDIAC DISTRESS NOTED. FALL AND SAFETY MEASURES IN PLACE, BED ALARM ON, BED IN LOW AND LOCK POSITION, CALL LIGHT AND TABLE WITHIN EASY REACH, SIDE RAILS UP X2. WILL CONTINUE TO MONITOR.
[2022-08-02] MEDS: TERBINAFINE HCL 250 MG TABLET PO SCH (08:51)
[2022-08-02] MEDS: PANTOPRAZOLE 40 MG TABLET.DR PO SCH (08:51)
[2022-08-02] MEDS: ASPIRIN EC 81 MG TABLET.DR PO SCH (08:51)
[2022-08-02] MEDS: CLOPIDOGREL BISULFATE 75 MG TABLET PO SCH (08:51)
[2022-08-02] MEDS: MUPIROCIN OINT 2% 22 GM TUBE TP SCH ×2 (10:43→23:08)
[2022-08-02] MEDS: VANCOMYCIN 1.25 GM in IV D5W 250 ML IV SCH (12:08)
[2022-08-02] MEDS: MORPHINE SULFATE INJ 2 MG/ML DISP.SYRIN IV PRN (15:51)
--- NOTE | 2022-08-02 19:02 | NUR ---
RN CLOSING NOTE PATIENT AWAKE IN BED RESTING AT THE MOMENT A/O X 4. NO S/S OF PAIN NOTED AT THIS TIME. ON 2L OXYGEN VIA NC, NO DISTRESS OR SHORTNESS OF BREATH NOTED. IV ACCESS LFA #20G, INTACT, PATENT AND FLUSHING WELL. PATIENT WITH EXTERNAL FREIGHT BROKER AGENT WITH CURRENT READING OF ST AND HR OF 103, NO CARDIAC DISTRESS NOTED. SCHEDULE MEDICATIONS ADMINISTERED. WOUND CARE IMPLEMENTED. FALL AND SAFETY MEASURES IN PLACE, BED ALARM ON, BED IN LOW AND LOCK POSITION, CALL LIGHT AND TABLE WITHIN EASY REACH, SIDE RAILS UP X2. WILL ENDORSE TO AUDIO VISUAL ARTS DIRECTOR.
--- NOTE | 2022-08-02 19:40 | NUR ---
SALESPERSON WIGS OPENING NOTE RECEIVED PATIENT IN BED; AWAKE, ALERT AND ORIENTED X 4. ON O2 INHALATION @ 2 LPM VIA NASAL CANNULA; TOLERATING WELL. BREATHING EVEN AND NONLABORED. NOT IN ANY FORM OR RESPIRATORY OR CARDIAC DISTRESS. DENIES ANY PAIN OR DISCOMFORT @ THIS TIME. WITH IV ACCESS ON LEFT FOREARM 20G; PATENT AND INTACT INFUSING WITH NS 1L RUNNING @ 75 ML/HR. ON TELEMETRY MONITORING WITH CURRENT READING OF SINUS RHYTHM HR-98 BPM. ABLE TO VERBALIZE NEEDS. SAFETY MEASURES IMPLEMENTED: CALL LIGHT AND TABLE WITHIN REACH, SIDE RAILS UP X 2, BED IN LOWEST LOCKED POSITION. WILL CONTINUE TO MONITOR.
[2022-08-02 20:00] VITALS: BP 145/84
[2022-08-02 20:59] VITALS: BP 145/84
[2022-08-02] MEDS: ATORVASTATIN 40 MG TABLET PO SCH (22:00)
[2022-08-02] MEDS: BENZONATATE 100 MG CAPSULE PO PRN (22:00)
[2022-08-03] VITALS (8 sets, daily range): BP systolic 133–165; BP diastolic 69–97
[2022-08-03] MEDS: VANCOMYCIN 1.25 GM in IV D5W 250 ML IV SCH (00:51)
[2022-08-03] MEDS: PIPERACILLIN /TAZOBACTAM 3.375 G in IV D5W 100 ML IV SCH (04:32)
[2022-08-03 06:07] LABS: BASOPHILS # (AUTO) 0.1 K/uL (0.0-0.2); BASOPHILS % (AUTO) 0.6 % (0.0-2.0); EOSINOPHILS % (AUTO) 1.1 % (0.0-6.0); HEMATOCRIT 32 % (39-51); HEMOGLOBIN 10.3 g/dL (13.5-17.5); MEAN CORPUSCULAR HGB CONC 33 g/dl (31.0-36.0); MEAN CORPUSCULAR VOLUME 78 fL (80-96); MONOCYTES # (AUTO) 1.5 K/uL (0.1-1.30); MONOCYTES % (AUTO) 12.3 % (2.0-12.0); NEUTROPHILS # (AUTO) 9.6 K/uL (1.8-8.9); PLATELET COUNT (AUTO) 468 K/uL (150-450); RED BLOOD CELL COUNT(AUTO) 4.09 MIL/uL (4.5-6.0); WHITE BLOOD COUNT (AUTO) 12.3 K/uL (4.3-11.0)
[2022-08-03 06:23] LABS: CALCIUM, SERUM 8.8 mg/dL (8.5-10.1); CREATININE 1.1 mg/dL (0.6-1.3); MAGNESIUM 2.3 mg/dL (1.8-2.4); POTASSIUM 3.9 mmol/L (3.5-5.1)
[2022-08-03] MEDS: BLOOD SUGAR DIAGNOSTIC 1 EACH STRIP IN SCH ×4 (06:33→22:46)
[2022-08-03] MEDS: INSULIN REGULAR, HUMAN 100 UNIT/ML 3 ML VIAL SQ PRN ×2 (06:34→12:04)
--- NOTE | 2022-08-03 06:34 | NUR ---
RN NOTE BLOOD SUGAR CHECKED - 139 MG/DL; 2 UNITS OF INSULIN COVERAGE HELD PER PATIENT'S REQUEST. WILL CONTINUE TO MONITOR FOR SIGNS OF HYPO/HYPERGLYCEMIA.
--- NOTE | 2022-08-03 06:50 | NUR ---
MASTER AT ARMS CLOSING NOTE PATIENT IN BED; AWAKE, A/O X 4. STILL ON O2 INHALATION @ 2 LPM VIA NASAL CANNULA; WELL TOLERATED. IN NO ACUTE DISTRESS. NO C/O ANY PAIN OR DISCOMFORT AT THIS TIME. WITH IV ACCESS ON LEFT FOREARM 20G; PATENT AND INTACT INFUSING WITH NS 1L RUNNING @ 75 ML/HR. ON TELEMETRY MONITORING WITH CURRENT READING OF SINUS RHYTHM HR-89 BPM. ALL DUE MEDS GIVEN ORDERED. SAFETY MEASURES MAINTAINED: CALL LIGHT AND TABLE WITHIN REACH, SIDE RAILS UP X 2, BED IN LOWEST LOCKED POSITION. ENDORSED TO MORNING SHIFT FOR GLENN.
--- NOTE | 2022-08-03 07:55 | NUR ---
RN OPENING NOTE RECEIVED PATIENT ASLEEP IN BED, EASILY BEING AROUSED. A/O X 4. NO S/S OF PAIN NOTED AT THIS TIME. ON 2L OXYGEN VIA NC, NO DISTRESS OR SHORTNESS OF BREATH NOTED. IV ACCESS LFA #20G, INTACT, PATENT AND FLUSHING WELL. PATIENT WITH EXTERNAL FOOD AND NUTRITION SUPERVISOR WITH, NO CARDIAC DISTRESS NOTED AT THIS MOMENT. SAFETY MEASURES IMPLEMENTED: CALL LIGHT AND TABLE WITHIN REACH, SIDE RAILS UP X 2, BED IN LOWEST AND LOCKED POSITION. WILL CONTINUE TO MONITOR AND ASSIST PATIENT.
[2022-08-03] MEDS: ACETYLCYSTEINE 10% SOLN 400 MG/4 ML VIAL NEB SCH ×4 (08:18→23:24)
[2022-08-03] MEDS: ALBUTEROL FS 2.5 MG/3 ML VIAL.NEB NEB PRN (08:19)
[2022-08-03] MEDS: CLOPIDOGREL BISULFATE 75 MG TABLET PO SCH (08:57)
[2022-08-03] MEDS: KETOCONAZOLE 2% CREAM 15 GM TUBE TP SCH (08:57)
[2022-08-03] MEDS: PANTOPRAZOLE 40 MG TABLET.DR PO SCH (08:57)
[2022-08-03] MEDS: ASPIRIN EC 81 MG TABLET.DR PO SCH (08:57)
[2022-08-03] MEDS: DOXYCYCLINE HYCLATE (100 MG) 100 MG TABLET PO SCH ×2 (08:57→20:51)
[2022-08-03] MEDS: TERBINAFINE HCL 250 MG TABLET PO SCH (08:57)
[2022-08-03] MEDS: CEFEPIME 2 GM in IV D5W 100 ML IV SCH ×3 (08:59→20:42)
[2022-08-03 09:23] LABS: BAND % (MANUAL) 6 % (0.0-5.0); EOSINOPHILS % (MANUAL) 3 % (0-4); LYMPHOCYTES % (MANUAL) 9 % (16-48); METAMYELOCYTES % 2 % (0-0); MONOCYTES % (MANUAL) 8 % (0-11.0); MYELOCYTES % 2 % (0-0); NEUTROPHILS % (MANUAL) 70 (42-76)
[2022-08-03] MEDS: MUPIROCIN OINT 2% 22 GM TUBE TP SCH ×2 (11:00→22:44)
[2022-08-03] MEDS: IV NS 0.9% 1,000 ML IV PRN (18:32)
--- NOTE | 2022-08-03 18:45 | NUR ---
RN CLOSING NOTE PATIENT AWAKE IN BED RESTING AT THE MOMENT A/O X 4. NO S/S OF PAIN NOTED AT THIS TIME. ON 2L OXYGEN VIA NC, NO DISTRESS OR SHORTNESS OF BREATH NOTED. IV ACCESS RIGHT HAND #22G, INTACT, PATENT AND FLUSHING WELL, RUNNING NS @75ML/HR. PATIENT WITH EXTERNAL DRAFTER CHIEF DESIGN. SCHEDULE MEDICATIONS ADMINISTERED. WOUND CARE IMPLEMENTED. FALL AND SAFETY MEASURES IN PLACE: CALL LIGHT AND TABLE WITHIN REACH, SIDE RAILS UP X 2, BED IN LOWEST AND LOCKED POSITION. WILL ENDORSE TO NEXT SHIFT FOR GLENN.
[2022-08-03] MEDS: HYDROCODONE/APAP 5/325MG TABLET PO PRN (20:51)
[2022-08-03] MEDS: ATORVASTATIN 40 MG TABLET PO SCH (22:47)
[2022-08-04] VITALS: BP 147/84
[2022-08-04 04:00] VITALS: BP 159/86
[2022-08-04] MEDS: CEFEPIME 2 GM in IV D5W 100 ML IV SCH ×3 (04:44→20:04)
[2022-08-04] MEDS: IV NS 0.9% 1,000 ML IV PRN (04:45)
[2022-08-04] MEDS: BENZONATATE 100 MG CAPSULE PO PRN (05:13)
[2022-08-04] MEDS: ACETAMINOPHEN 325 MG TABLET PO PRN ×2 (05:13→12:15)
--- NOTE | 2022-08-04 05:22 | NUR ---
closing notes: alert and orientated X$4 refused to have his legs unwrapped and Bactroban applied last night at 2200 dressing on elizabeth legs CDI
[2022-08-04] MEDS: BLOOD SUGAR DIAGNOSTIC 1 EACH STRIP IN SCH ×4 (06:00→22:05)
[2022-08-04] MEDS: INSULIN REGULAR, HUMAN 100 UNIT/ML 3 ML VIAL SQ PRN ×2 (06:04→12:12)
--- NOTE | 2022-08-04 07:30 | NUR ---
RN OPENING NOTE RECEIVED PATIENT AWAKE IN BED, EASILY BEING AROUSED. A/O X 4. NO DISTRESS OR SHORTNESS OF BREATH NOTED AT THIS TIME. NO S/S OF PAIN NOTED AT THIS TIME. ON 2L OXYGEN VIA NC. IV ACCESS RIGHT HAND #22G, INTACT, PATENT AND FLUSHING WELL, RUNNING NS @75ML/HR. PATIENT WITH EXTERNAL [facility] WITH, NO CARDIAC DISTRESS NOTED AT THIS MOMENT. SAFETY MEASURES IMPLEMENTED: CALL LIGHT AND TABLE WITHIN REACH, HOB ELEVATED. SIDE RAILS UP X 2, BED IN LOWEST AND LOCKED POSITION. WILL CONTINUE TO MONITOR AND ASSIST PATIENT.
[2022-08-04] MEDS: ACETYLCYSTEINE 10% SOLN 400 MG/4 ML VIAL NEB SCH ×3 (07:35→23:30)
[2022-08-04 07:42] LABS: BASOPHILS % (AUTO) 0.3 % (0.0-2.0); EOSINOPHILS % (AUTO) 1.9 % (0.0-6.0); HEMATOCRIT 31 % (39-51); HEMOGLOBIN 9.8 g/dL (13.5-17.5); LYMPHOCYTES % (AUTO) 8.7 % (20.0-44.0); MEAN CORPUSCULAR HGB CONC 32 g/dl (31.0-36.0); MEAN CORPUSCULAR VOLUME 79 fL (80-96); MONOCYTES # (AUTO) 1.6 K/uL (0.1-1.30); MONOCYTES % (AUTO) 13.4 % (2.0-12.0); NEUTROPHILS # (AUTO) 9.1 K/uL (1.8-8.9); NEUTROPHILS % (AUTO) 75.7 % (43.0-81.0); PLATELET COUNT (AUTO) 538 K/uL (150-450); RED BLOOD CELL COUNT(AUTO) 3.89 MIL/uL (4.5-6.0)
[2022-08-04 07:57] LABS: CALCIUM, SERUM 9.1 mg/dL (8.5-10.1); MAGNESIUM 2.2 mg/dL (1.8-2.4); POTASSIUM 3.9 mmol/L (3.5-5.1)
[2022-08-04 08:00] VITALS: BP 139/79
[2022-08-04] MEDS: ASPIRIN EC 81 MG TABLET.DR PO SCH (08:16)
[2022-08-04] MEDS: KETOCONAZOLE 2% CREAM 15 GM TUBE TP SCH (08:16)
[2022-08-04] MEDS: PANTOPRAZOLE 40 MG TABLET.DR PO SCH (08:16)
[2022-08-04] MEDS: DOXYCYCLINE HYCLATE (100 MG) 100 MG TABLET PO SCH ×2 (08:16→20:04)
[2022-08-04] MEDS: TERBINAFINE HCL 250 MG TABLET PO SCH (08:16)
[2022-08-04] MEDS: CLOPIDOGREL BISULFATE 75 MG TABLET PO SCH (08:16)
[2022-08-04] MEDS: MUPIROCIN OINT 2% 22 GM TUBE TP SCH ×2 (11:34→23:06)
[2022-08-04 12:00] VITALS: BP 152/79
[2022-08-04] MEDS: MORPHINE SULFATE INJ 2 MG/ML DISP.SYRIN IV PRN ×2 (14:15→20:45)
--- NOTE | 2022-08-04 14:55 | NUR ---
RN NOTE/WOUND CARE WOUND CARE PERFORMED AT THIS TIME. OLD DRESSING REMOVED. SEROUS DRAINAGE OF MODERATE AMOUNT NOTED TO OLD DRESSING. NO ODOR, NO ESCHAR. CLEANSED WITH CHLORHEXIDINE. BACTROBAN APPLIED. APPLIED OINTMENT TO WOUNDS. NEW DRESSING APPLIED. ABD PADS AND WRAPPED WITH KELRLIX GAUZE. TAPE SECURELY. PHOTOS TAKEN AND DOCUMENTED IN THE CHART.
[2022-08-04 16:00] VITALS: BP 143/80
--- NOTE | 2022-08-04 18:35 | NUR ---
RN CLOSING NOTE PATIENT AWAKE IN BED RESTING AT THE MOMENT A/O X 4. NO S/S OF PAIN NOTED AT THIS TIME. ON 2L OXYGEN VIA NC, NO DISTRESS OR SHORTNESS OF BREATH NOTED. IV ACCESS RIGHT HAND #22G, INTACT, PATENT AND FLUSHING WELL, RUNNING NS @75ML/HR. PATIENT WITH EXTERNAL FLUX TUBE ATTENDANT. SCHEDULE MEDICATIONS ADMINISTERED. WOUND CARE IMPLEMENTED. FALL AND SAFETY MEASURES IN PLACE: CALL LIGHT AND TABLE WITHIN REACH, SIDE RAILS UP X 2, BED IN LOWEST AND LOCKED POSITION. WILL ENDORSE TO NEXT SHIFT FOR GLENN.
[2022-08-04 20:00] VITALS: BP 151/86
[2022-08-04] MEDS: ATORVASTATIN 40 MG TABLET PO SCH (21:08)
--- NOTE | 2022-08-04 21:24 | NUR ---
RN OPENING NOTE RECEIVED PATIENT AWAKE IN BED. A/O X 4. NO DISTRESS OR SHORTNESS OF BREATH NOTED AT THIS TIME. NO S/S OF PAIN NOTED AT THIS TIME. ON 2L OXYGEN VIA NC. IV ACCESS RIGHT HAND #22G, INTACT, PATENT AND FLUSHING WELL, RUNNING NS @75ML/HR. PATIENT WITH EXTERNAL DAIRY MANAGER WITH, NO CARDIAC DISTRESS NOTED AT THIS MOMENT. SAFETY MEASURES IMPLEMENTED: CALL LIGHT AND TABLE WITHIN REACH, HOB ELEVATED. SIDE RAILS UP X 2, BED IN LOWEST AND LOCKED POSITION. WILL CONTINUE TO MONITOR AND ASSIST PATIENT.
--- NOTE | 2022-08-04 23:00 | NUR ---
RN NOTES - BLOOD SUGAR OF 154. REFUSED INSULIN COVERAGE. EXPLAINED RISK OF ABOVE NORMAL SUGAR LEVEL X3. STILL REFUSED. KEPT COMFORTABLE.
[2022-08-05] VITALS: BP 140/85
[2022-08-05 04:00] VITALS: BP 144/76
[2022-08-05] MEDS: CEFEPIME 2 GM in IV D5W 100 ML IV SCH ×2 (05:25→12:10)
[2022-08-05] MEDS: MORPHINE SULFATE INJ 2 MG/ML DISP.SYRIN IV PRN ×3 (05:41→18:13)
[2022-08-05 05:44] LABS: BASOPHILS % (AUTO) 0.3 % (0.0-2.0); EOSINOPHILS % (AUTO) 1.6 % (0.0-6.0); HEMATOCRIT 32 % (39-51); HEMOGLOBIN 10.1 g/dL (13.5-17.5); LYMPHOCYTES # (AUTO) 1.2 K/uL (0.8-4.8); LYMPHOCYTES % (AUTO) 8.7 % (20.0-44.0); MEAN CORPUSCULAR HGB CONC 32 g/dl (31.0-36.0); MEAN CORPUSCULAR VOLUME 78 fL (80-96); MONOCYTES # (AUTO) 1.5 K/uL (0.1-1.30); MONOCYTES % (AUTO) 11.3 % (2.0-12.0); NEUTROPHILS # (AUTO) 10.6 K/uL (1.8-8.9); NEUTROPHILS % (AUTO) 78.1 % (43.0-81.0); PLATELET COUNT (AUTO) 609 K/uL (150-450); WHITE BLOOD COUNT (AUTO) 13.6 K/uL (4.3-11.0)
[2022-08-05] MEDS: BLOOD SUGAR DIAGNOSTIC 1 EACH STRIP IN SCH ×3 (05:50→17:30)
[2022-08-05 06:02] LABS: CALCIUM, SERUM 8.7 mg/dL (8.5-10.1); MAGNESIUM 2.1 mg/dL (1.8-2.4); PHOSPHORUS 3.2 mg/dL (2.5-4.9); POTASSIUM 3.9 mmol/L (3.5-5.1)
--- NOTE | 2022-08-05 06:50 | NUR ---
RN CLOSING NOTE PATIENT AWAKE IN BED RESTING AT THE MOMENT A/O X 4. NO S/S OF PAIN NOTED AT THIS TIME. ON 2L OXYGEN VIA NC, NO DISTRESS OR SHORTNESS OF BREATH NOTED. IV ACCESS RIGHT HAND #22G, INTACT, PATENT AND FLUSHING WELL, RUNNING NS @75ML/HR. PATIENT WITH EXTERNAL WOOD FENCE ERECTOR. SCHEDULE MEDICATIONS ADMINISTERED. FALL AND SAFETY MEASURES IN PLACE: CALL LIGHT AND TABLE WITHIN REACH, SIDE RAILS UP X 2, BED IN LOWEST AND LOCKED POSITION. WILL ENDORSE TO NEXT SHIFT FOR GLENN.
--- NOTE | 2022-08-05 07:09 | NUR ---
INDUCTION MACHINE SETTER OPENING NOTES RECEIVED PATIENT AWAKE IN BED, A/Ox4, ABLE TO VERBALIZE NEEDS. ON O2 2L VIA NC. NO S/S OF RESPIRATORY DISTRESS. PATIENT ON TELE MONITORING SHOWING SINUS RHYTHM HR 92. NO C/O OF DISTRESS OR DISCOMFORT. IV ACCESS R HAND #22 NS @75 ML/HR. PATIENT IS COMPLAINING OF PAIN IN HIS BILATERAL LOWER LEGS. PATIENT IS CONTINENT USES URINAL. SKIN ISSUES: BLE CELLULITES. SAFETY MEASURES IN PLACE: BED LOCKED AND IN LOWEST POSITION, SIDE RAILS UPx2, CALL LIGHT WITHIN REACH, HOB ELEVATED. WILL CONTINUE TO MONITOR.
[2022-08-05] MEDS: ACETYLCYSTEINE 10% SOLN 400 MG/4 ML VIAL NEB SCH ×2 (07:35→16:30)
[2022-08-05] MEDS: CLOPIDOGREL BISULFATE 75 MG TABLET PO SCH (08:04)
[2022-08-05] MEDS: PANTOPRAZOLE 40 MG TABLET.DR PO SCH (08:04)
[2022-08-05] MEDS: ASPIRIN EC 81 MG TABLET.DR PO SCH (08:04)
[2022-08-05] MEDS: DOXYCYCLINE HYCLATE (100 MG) 100 MG TABLET PO SCH (08:04)
[2022-08-05] MEDS: KETOCONAZOLE 2% CREAM 15 GM TUBE TP SCH (08:06)
[2022-08-05] MEDS: PHENOL/SODIUM PHENOLATE 1 BOTTLE MM PRN (08:07)
[2022-08-05] MEDS: TERBINAFINE HCL 250 MG TABLET PO SCH (08:07)
[2022-08-05] MEDS: HYDROCODONE/APAP 5/325MG TABLET PO PRN ×2 (08:10→16:06)
--- NOTE | 2022-08-05 09:30 | NUR ---
RN NOTES PATIENT COMPLAINED OF PAIN AND WANTED PRN NARCO, PAIN 7/10. WILL CONTINUE TO MONITOR.
[2022-08-05] MEDS: MUPIROCIN OINT 2% 22 GM TUBE TP SCH (11:06)
[2022-08-05] MEDS ORDERED: LEVO750T46 PO (14:51)
[2022-08-05] MEDS ORDERED: DOXY100T2 PO (14:51)
--- NOTE | 2022-08-05 16:30 | NUR ---
RN NOTES PRN NARCO GIVEN BEFORE WOUND CARE PATIENT COMPLAINED OF PAIN. WILL CONTINUE TO MONITOR.
[2022-08-05] MEDS: ACETAMINOPHEN 325 MG TABLET PO PRN (17:12)
--- NOTE | 2022-08-05 19:02 | NUR ---
ATHLETIC SCOUT CLOSING NOTES PATIENT AWAKE IN BED, A/Ox4, ABLE TO VERBALIZE NEEDS. STABLE ON ROOM AIR. NO S/S OF RESPIRATORY DISTRESS. PATIENT ON TELE MONITORING SHOWING SINUS RHYTHM HR 92. NO C/O OF DISTRESS OR DISCOMFORT. IV ACCESS R HAND #22 NS @75 ML/HR. PATIENT IS COMPLAINING OF PAIN IN HIS BILATERAL LOWER LEGS. PATIENT IS CONTINENT USES URINAL. SKIN ISSUES: BLE CELLULITES. ALL PRESCRIBED MEDICATION ADMINISTERED. SAFETY MEASURES MAINTAINED: BED LOCKED AND IN LOWEST POSITION, SIDE RAILS UPx2, CALL LIGHT WITHIN REACH, HOB ELEVATED. WILL ENDORSE TO NEXT SHIFT ANY GLENN. PATIENT TO BE PICKED UP FOR DISCHARGE @1930 TO [facility]. REPORT GIVEN TO
== END 2022-08-05 20:30 | DRG 871 ==
LOC: ER 13:25 → TELE 20:49
PROVIDERS: ADMIT Nurse Practitioner Acute Care; ATTEND Nurse Practitioner Acute Care
DX: A41.9 Sepsis, unspecified organism (principal); J15.9 Unspecified bacterial pneumonia; E87.1 Hypo-osmolality and hyponatremia; L03.115 Cellulitis of right lower limb; L03.116 Cellulitis of left lower limb; L97.929 Non-pressure chronic ulcer of unspecified part of left lower leg with unspecified severity; L97.919 Non-pressure chronic ulcer of unspecified part of right lower leg with unspecified severity; I87.313 Chronic venous hypertension (idiopathic) with ulcer of bilateral lower extremity; E11.42 Type 2 diabetes mellitus with diabetic polyneuropathy; E78.5 Hyperlipidemia, unspecified; E86.1 Hypovolemia; I10 Essential (primary) hypertension; I25.10 Atherosclerotic heart disease of native coronary artery without angina pectoris; I87.8 Other specified disorders of veins; Z20.822 Contact with and (suspected) exposure to COVID-19; Z87.891 Personal history of nicotine dependence; I73.9 Peripheral vascular disease, unspecified
CPT/HCPCS: 36415; 71045-TC; 73590-TC; 73718-TC; 80048-TC; 80061-TC; 80076-TC; 80202-TC; 81001; 82962-TC; 83605-TC; 83735-TC; 84100-TC; 84443-TC; 84484-TC; 85025-TC; 85652-TC; 86140-TC; 86803; 87040-TC; 87081-TC; 87086-TC; 87806; 93971-TC; 94799-TC; 97110-TC; 97116-TC; 97530-TC; A6253; A6403; A6407; C9803; G0378; G0463; J0692; J1815; J1885; J2060; J2270; J2543; J3370; J7030; J7060

== ENCOUNTER → 2022-07-29 | Outpatient (CLI) | payer MEDICARE, MEDICAID ==
[~2022-07-29] MED LIST: ASPI-1420 PO; ATOR40TA PO; CLOP75TA15 PO; DOXY100T2 PO; HYDR25TA4 PO; LEVO750T46 PO; METF-881 PO; TERB250T52 PO
== END | disposition other institution (70) ==
LOC: WOU 13:00
PROVIDERS: ATTEND Podiatrist Foot & Ankle Surgery
DX: R07.9 Chest pain, unspecified (principal); R06.02 Shortness of breath